=== PATIENT | male | born 1970 | race Caucasian/White ===

== ENCOUNTER → 2023-05-01 14:47 | Outpatient (REF) | payer BC, SELFPAY | LOC: PAVMRI 14:47 | PROVIDERS: ATTENDING PHYSICIAN Physician Assistant | DX: E22.1 Hyperprolactinemia (principal) | CPT/HCPCS: 70553; A9575 ==

== ENCOUNTER → 2025-02-15 08:34 | Outpatient (REF) | payer OTHER, SELFPAY | LOC: PAVMRI 08:34 | PROVIDERS: ATTENDING PHYSICIAN Podiatrist Primary Podiatric Medicine | DX: M79.671 Pain in right foot (principal); M84.374A Stress fracture, right foot, initial encounter for fracture | CPT/HCPCS: 73718 ==